=== PATIENT | female | born 1995 | race American Indian/Alaskan Native ===

== ENCOUNTER 2019-06-10 16:06 | Inpatient (IN) | payer MEDICAID ==
[2019-06-10] MEDS ORDERED: LACTATED RINGERS 1,000 ML ONE ×2 (16:14→17:02)
[2019-06-10] MEDS ORDERED: CLEOCIN 900 MG/50 mL 900 MG/50 ML BAG IV SCH (17:00)
[2019-06-10] MEDS ORDERED: CLEOCIN 900 MG/50 mL 900 MG/50 ML BAG IV ONE (17:02)
[2019-06-10] MEDS ORDERED: PITOCin/NS 20 UNIT/1000ML DRIP 20,000 MILLIUNITS/1,000 ML BAG IV ONE (17:13)
[2019-06-10 17:14] LABS: Basophils % (Auto) 0.4 % (0.0-1.8); Hematocrit 36.8 % (30.3-42.9); Hemoglobin 11.7 gm/dl (10.1-14.3); Lymphocytes # (Auto) 2.2 K/mm3 (1.2-5.4); Lymphocytes % (Auto) 17.7 % (13.4-35.0); Mean Corpuscular HGB Conc 32 % (30-34); Mean Corpuscular Volume 72 fl (79-97); Monocytes # (Auto) 0.8 K/mm3 (0.0-0.8); Monocytes % (Auto) 6.1 % (0.0-7.3); Platelet Count 186 K/mm3 (140-440); Red Cell Distribution Width 18.1 % (13.2-15.2)
[2019-06-10] MEDS ORDERED: SUBLIMAZE ONE (17:29)
[2019-06-10] MEDS ORDERED: LACTATED RINGERS 1,000 ML IV SCH ×2 (18:00→19:00)
--- NOTE | 2019-06-10 18:05 | History and Physical Report ---
History of Present Illness Date of examination: 06/10/19 Date of admission: 06/10/19 17:03 Chief complaint: vaginal bleeding, abdominal pain History of present illness: Pt is a 24 year old -Tong[place] female JEANNE 06/22/19 at 38w2d presents with vaginal bleeding since 1 pm and contractions as well as advanced dilation of 5 cm. Pt reports movement. She reports care at an office in [place] and one in [place], [place]. She was scheduled to initiate care at [facility] but was noted to have abdominal pain and vaginal bleeding so she was sent to the office. Some of her records are available and she is noted to be GBS positive. 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 Family/Genetic History: none Social history: no significant social history - Obstetrical History Expected Date of Delivery: 06/22/19 Actual Gestation: 38 Week(s) 2 Day(s) : 3 Para: 2 Hx # Term Pregnancies: 2 Number of Pregnancies: 0 Spontaneous Abortions: 0 Induced : 0 Number of Living Children: 2 Medications and Allergies Allergies Allergy/AdvReac Type Severity Reaction Status Date / Time Penicillins Allergy Anaphylaxis Verified 06/10/19 16:20 pineapple Allergy Itching Verified 06/10/19 16:20 Active Meds: Active Medications Clindamycin HCl (Cleocin 900 Mg/50 Ml) 900 mg in 50 mls @ 100 mls/hr IV Q8HR ISAK; Protocol Lactated Ringer's (Lactated Ringers) 1,000 mls @ 125 mls/hr IV DIRECT ISAK Review of Systems All systems: negative - Vital Signs Vital signs: Vital Signs Pulse BP 83 120/70 06/10/19 17:32 06/10/19 17:32 Temp Pulse Resp BP Pulse Ox 83 115/68 06/10/19 17:47 06/10/19 17:47 - Physical Exam Breasts: Positive: deferred Cardiovascular: Regular rate Lungs: Positive: Clear to auscultation Abdomen: Positive: soft (gravid ), tenderness Genitourinary (Female): Positive: normal external genitalia Uterus: Positive: enlarged (gravid ) Extremities: Positive: normal - Obstetrical FHR: category 2 Uterine Contraction Monitor Mode: External Cervical Dilatation: 10 Cervical Effacement Percentage: 100 station: +1 Results Result Diagrams: 06/10/19 16:15 Abnormal lab results 06/10/19 Range/Units 16:15 WBC 12.5 H (4.5-11.0) K/mm3 RBC 5.10 H (3.65-5.03) M/mm3 MCV 72 L (79-97) fl MCH 23 L (28-32) pg RDW 18.1 H (13.2-15.2) % Seg Neutrophils % 75.8 H (40.0-70.0) % Seg Neutrophils # 9.5 H (1.8-7.7) K/mm3 All other labs normal. Assessment and Plan A: IUP at 38w2d Vaginal bleeding and abdominal pain suggestive of placental abruption Limited care Rupture of membranes at 1300 pm GBS positive P: Admit to labor and delivery GBS prophylaxis with Clindamycin Anticipate vaginal delivery
[2019-06-10] MEDS ORDERED: NARCAN 0.4 MG/1 ML IV PRN (18:16)
[2019-06-10] MEDS ORDERED: MINERAL OIL PO PRN (18:16)
[2019-06-10] MEDS ORDERED: XYLOCAINE 2% INFILTRATI ONE (18:16)
[2019-06-10] MEDS ORDERED: ZOFRAN IV PRN ×2 (18:16→21:00)
[2019-06-10] MEDS ORDERED: STADOL IV PRN (18:16)
[2019-06-10] MEDS ORDERED: BRETHINE IVP PRN (18:16)
[2019-06-10] MEDS ORDERED: NUBAIN IV PRN (18:16)
[2019-06-10] MEDS ORDERED: BRETHINE SUB-Q PRN (18:16)
[2019-06-10] MEDS ORDERED: SUBLIMAZE IV PRN (18:16)
--- NOTE | 2019-06-10 18:16 | Procedure Note ---
OB Delivery Note - Delivery Date of Delivery: 06/10/19 Surgeon: SERINA KEY Estimated blood loss: 1000cc (prior to the delivery; clots measuring 600 mL accumulated prior to delivery; minimal hemorrhage) - Vaginal Delivery presentation: vertex Delivery position: OA Intrapartum events: PROM->1hr before delivery, abruption, extend. bradycardia Delivery augmentation: rupture of membranes (of forebag ) Delivery monitor: external FHT, external uterine Route of delivery: Delivery placenta: spontaneous Delivery cord: nuchal cord, 3 umbilical vessels, other (Body cord x 1 ) Episiotomy: none Delivery laceration: other (vaginal abrasions and bilateral periurethral abrasions hemostatic ) Anesthesia: none - A at 1 minute: 6 at 5 minutes: 9 Gender: Female (2932g (6lb 7.4 oz) @ 1715 pm)
[2019-06-10] MEDS ORDERED: PITOCin/NS 20 UNIT/1000ML DRIP 20 UNITS/1,000 ML BAG IV SCH ×2 (19:00→21:00)
--- NOTE | 2019-06-10 19:22 | Ultrasound Report ---
Limited OB ultrasound FINDINGS: The STARLA is low at total of 6.2 cm. Placenta is anterior and grade 2 and free of the os. Fet al heart rate is 137 bpm. Signer Name: Roger Myers MD Signed: 06/10/2019 7:17 PM Workstation Name: [id number]
[2019-06-10 20:58] LABS: Basophils # (Auto) 0.2 K/mm3 (0.0-0.1); Basophils % (Auto) 1.4 % (0.0-1.8); Eosinophils % (Auto) 0.1 % (0.0-4.3); Hematocrit 36.7 % (30.3-42.9); Hemoglobin 11.6 gm/dl (10.1-14.3); Lymphocytes # (Auto) 2.3 K/mm3 (1.2-5.4); Lymphocytes % (Auto) 17.6 % (13.4-35.0); Mean Corpuscular HGB Conc 32 % (30-34); Mean Corpuscular Volume 72 fl (79-97); Monocytes # (Auto) 0.8 K/mm3 (0.0-0.8); Monocytes % (Auto) 5.9 % (0.0-7.3); Platelet Count 193 K/mm3 (140-440); Red Cell Distribution Width 18.3 % (13.2-15.2)
[2019-06-10] MEDS ORDERED: DERMOPLAST TP PRN (21:00)
[2019-06-10] MEDS ORDERED: LANSINOH TP PRN ×2 (21:00)
[2019-06-10] MEDS ORDERED: MILK OF MAGNESIA PO PRN (21:00)
[2019-06-10] MEDS ORDERED: TYLENOL PO PRN (21:00)
[2019-06-10] MEDS ORDERED: TUCKS PAD TP PRN (21:00)
[2019-06-10] MEDS ORDERED: PHENERGAN PR PRN (21:00)
[2019-06-10] MEDS ORDERED: PHENERGAN PO PRN (21:00)
[2019-06-10] MEDS ORDERED: SODIUM CHLORIDE FLUSH SYRINGE 10 ML IV SCH (21:00)
[2019-06-10] MEDS ORDERED: DULCOLAX PR PRN (21:00)
[2019-06-10] MEDS ORDERED: BENADRYL PO PRN (21:00)
[2019-06-10] MEDS: IBUPROFEN PO SCH (21:44)
[2019-06-10] MEDS ORDERED: FEOSOL PO SCH (22:00)
[2019-06-10 22:57] LABS: Amphetamine Screen,Urine PRESUMPTIVE NEGATIVE; Benzodiazepines Screen,Urine PRESUMPTIVE NEGATIVE; Cannabinoid Screen,Urine PRESUMPTIVE NEGATIVE; Cocaine Screen,Urine PRESUMPTIVE NEGATIVE; Methadone Screen,Urine PRESUMPTIVE NEGATIVE; Opiate Screen,Urine PRESUMPTIVE NEGATIVE
[2019-06-11] MEDS: NORCO 5/325 PO PRN ×2 (02:08→10:05)
[2019-06-11] MEDS ORDERED: BOOSTRIX IM ONE (06:00)
[2019-06-11 06:17] LABS: Hematocrit 24.6 % (30.3-42.9); Hemoglobin 7.8 gm/dl (10.1-14.3)
[2019-06-11] MEDS: IBUPROFEN PO SCH ×2 (06:46→10:10)
--- NOTE | 2019-06-11 12:34 | Progress Note ---
Assessment and Plan A/P PPD1 s/p and hemorrhage EBL 1000mL due to abruption, now hemodynamically stable Anemia due to blood loss- supplement with ferrous sulfate 325 mg TID Repeat CBC this evening Likely stable for discharge on PPD2 Subjective - Subjective Date of service: 06/11/19 Principal diagnosis: Interval history: Pt is PPD1 s/p on 06/10 at 1715. She sustained a placental abruption with EBL 1000ml. is doing well. Patient reports: appetite normal, voiding normally, pain well controlled, ambulating normally [place]: doing well, nursing well Objective - Vital Signs Latest vital signs: Vital Signs Temp Pulse Resp BP BP Pulse Ox 06/11/19 07:41 98.4 F 85 16 99/55 99 06/11/19 01:43 98.1 F 79 18 102/55 97 06/10/19 20:55 97.8 F 94 H 18 105/64 06/10/19 20:17 74 113/73 06/10/19 18:32 75 101/66 06/10/19 18:17 60 108/66 06/10/19 18:02 64 110/68 06/10/19 17:47 83 115/68 06/10/19 17:32 83 120/70 06/10/19 16:07 98.1 F 90 20 154/79 Intake and Output 06/10/19 06/11/19 06/11/19 23:59 07:59 15:59 Intake Total 240 480 Output Total 600 900 Balance -360 -420 Intake: Oral 240 480 Output: Urine 600 900 Void 600 900 Other: Total, Intake Amount 240 240 Total, Output Amount 600 300 Weight 115 lb - Exam Breasts: Present: deferred Cardiovascular: Present: Regular rate, Normal S1, Normal S2, No murmurs Lungs: Present: Clear to auscultation, Normal air movement Abdomen: Present: normal appearance, soft Uterus: Present: normal, firm, fundal height below umbilicus Extremities: Present: normal - Labs Labs: Abnormal lab results 06/10/19 06/10/19 06/11/19 Range/Units 16:15 Unknown 06:03 WBC 12.5 H 13.1 H (4.5-11.0) K/mm3 RBC 5.10 H 5.10 H (3.65-5.03) M/mm3 Hgb 7.8 L D (10.1-14.3) gm/dl Hct 24.6 L D (30.3-42.9) % MCV 72 L 72 L (79-97) fl MCH 23 L 23 L (28-32) pg RDW 18.1 H 18.3 H (13.2-15.2) % Baso # 0.2 H (0.0-0.1) K/mm3 Seg Neutrophils % 75.8 H 75.0 H (40.0-70.0) % Seg Neutrophils # 9.5 H 9.8 H (1.8-7.7) K/mm3
--- NOTE | 2019-06-11 12:38 | Discharge Summary ---
Providers - Providers Date of Admission: 06/10/19 17:03 Date of discharge: 06/12/19 Attending physician: SERINA KEY Primary care physician: SERINA EKY Hospitalization Reason for admission: active labor, vaginal bleeding Delivery: Episiotomy: none Laceration: none Other procedures: none complications: other (anemia duet o blood loss) Discharge diagnosis: IUP at term delivered baby: female Hospital course: Pt sustained a placental abruption with EBL 1000ml, most of which was prior to delivery. Condition at discharge: Good Disposition: DC-01 TO HOME OR SELFCARE Plan - Discharge Medications Prescriptions: Ferrous Sulfate [Feosol 325 MG tab] 325 mg PO BID #60 tablet Ibuprofen [Motrin] 800 mg PO Q8HR PRN #30 tablet PRN Reason: Pain, Moderate (4-6) HYDROcodone/APAP 5-325 [[place] 5/325] 1 each PO Q6HR PRN #30 tablet PRN Reason: Pain - Provider Discharge Summary Activity: routine, no sex for 6 weeks, no heavy lifting 4 weeks, no strenuous exercise Diet: routine Instructions: routine Additional instructions: [] Smoking cessation referral if applicable(refer to patient education folder for contact #) [] Refer to [facility] Booklet Call your doctor immediately for: * Fever > 100.5 * Heavy vaginal bleeding ( >1 pad per hour) * Severe persistent headache * Shortness of breath * Reddened, hot, painful area to leg or breast * Drainage or odor from incision. * Keep incision clean and dry at all times and follow doctor's instructions regarding bathing/showering - Follow up plan Follow up: SERINA KEY MD [Primary Care Provider] - 07/08/19 (Please call to schedule appointment)
[2019-06-11] MEDS ORDERED: M-M-R II VACCINE SUB-Q ONE (18:20)
[2019-06-11] MEDS: FEOSOL PO SCH (18:52)
[2019-06-11 20:33] LABS: Hemoglobin 8.4 gm/dl (10.1-14.3)
[2019-06-11 20:34] LABS: Hematocrit 25.4 % (30.3-42.9); Mean Corpuscular HGB Conc 33 % (30-34); Mean Corpuscular Volume 73 fl (79-97); Platelet Count 164 K/mm3 (140-440); Red Cell Distribution Width 18.1 % (13.2-15.2)
[2019-06-12] MEDS: FEOSOL PO SCH ×2 (00:53→09:47)
--- NOTE | 2019-06-12 08:47 | Progress Note ---
Assessment and Plan PPD2 s/p and hemorrhage, stable for discharge to home today Follow up with [facility] in 4-6 weeks, or 2 weeks if desired Breast feeding well Anemia- continue ferrous sulfate supplementation Subjective - Subjective Date of service: 06/12/19 Principal diagnosis: Interval history: Pt is PPD2 s/p on 06/10 at 1715. She sustained a placental abruption with EBL 1000ml. is doing well. : doing well, nursing well (Cluster feeding last night, supplemented with formula in addition to breast) Objective - Vital Signs Latest vital signs: Vital Signs Temp Pulse Resp BP BP Pulse Ox 06/12/19 07:41 98.3 F 63 20 106/62 99 06/11/19 17:09 98.0 F 69 18 108/67 98 Intake and Output 06/11/19 06/12/19 06/12/19 23:59 07:59 15:59 Intake Total 1320 360 Balance 1320 360 Intake: Oral 600 Intake, Free Water 720 360 Other: Total, Intake Amount 120 # Voids Void 1 1 - Exam Breasts: Present: deferred Cardiovascular: Present: Regular rate, Normal S1, Normal S2, No murmurs Lungs: Present: Clear to auscultation, Normal air movement Abdomen: Present: normal appearance, soft Uterus: Present: normal, firm, fundal height below umbilicus Extremities: Present: normal - Labs Labs: Abnormal lab results 06/11/19 Range/Units 20:01 RBC 3.50 L (3.65-5.03) M/mm3 Hgb 8.4 L (10.1-14.3) gm/dl Hct 25.4 L (30.3-42.9) % MCV 73 L (79-97) fl MCH 24 L (28-32) pg RDW 18.1 H (13.2-15.2) %
[2019-06-12] MEDS: IBUPROFEN PO SCH (09:49)
[2019-06-12] MEDS: NORCO 5/325 PO PRN (09:50)
[2019-06-12 15:41] VITALS: BP 103/58
== END 2019-06-12 21:00 | disposition home or self-care (01) | DRG 774 ==
LOC: TRG 16:06 → LD 17:03 → TRG 17:03 → OB 20:32
PROVIDERS: ADMIT Obstetrics & Gynecology; ATTEND Obstetrics & Gynecology
PROC: 10E0XZZ Delivery of Products of Conception, External Approach (ICD-10-PCS; principal; 2019-06-10)
PROC: 3E0234Z Introduction of Serum, Toxoid and Vaccine into Muscle, Percutaneous Approach (ICD-10-PCS; 2019-06-11)
DX: O99.824 Streptococcus B carrier state complicating childbirth (principal); O45.93 Premature separation of placenta, unspecified, third trimester; Z3A.38 38 weeks gestation of pregnancy; Z37.0 Single live birth; Z23 Encounter for immunization; Z88.0 Allergy status to penicillin; Z91.018 Allergy to other foods; O42.02 Full-term premature rupture of membranes, onset of labor within 24 hours of rupture; O69.81X0 Labor and delivery complicated by cord around neck, without compression, not applicable or unspecified; O71.82 Other specified trauma to perineum and vulva; O90.81 Anemia of the puerperium; D62 Acute posthemorrhagic anemia
CPT/HCPCS: 36415; 76815; 80307; 85014; 85018; 85025; 85027; 86592; 86706; 86762; 86850; 86900; 86901; 87806; 88307; G0378; A6250; J2590; J3010; J7120